=== PATIENT | male | born 1965 | race Caucasian/White ===

== ENCOUNTER 2016-08-30 13:43 | Day surgery (SDC) | payer BC ==
[2016-08-30] MEDS ORDERED: SODIUM CHLORIDE 0.9% 1,000 ML ONE (13:47)
[2016-08-30] MEDS ORDERED: IV START KIT ONE (13:47)
[2016-08-30] MEDS ORDERED: SODIUM CHLORIDE 0.9% 1,000 ML IV SCH (13:56)
[2016-08-30] MEDS ORDERED: LIDOCAINE 1% 2 ML VIAL ID PRN (13:56)
[2016-08-30] MEDS ORDERED: ONDANSETRON 4 MG/2ML 2 ML VIAL IV PRN (13:56)
[2016-08-30] MEDS ORDERED: PROPOFOL 60 ML IV ONE (15:09)
[2016-08-30 21:24] LABS: HELICOBACTER PYLORII DETECTION NEGATIVE (NEGATIVE)
--- NOTE | 2016-09-04 13:19 | SURGPATH ---
[facility] [address] [place] [id number] Patient Name: NONI SHANNON MR#: [id number] : 1965 Gender: M Specimen #: [id number] Collected: 08/30/2016 Received: 09/03/2016 Reported: 09/04/2016 Submitting Phys: MARY VALLADARES Copy To Phys: ISABELLA [facility] Clinical History / Pre-Operative Diagnosis: GERD; HISTORY OF COLON POLYPS Specimen Source / Surgical Procedure Performed: #1-ANTRAL BIOPSY; #2-GE JUNCTION BIOPSY AT 44 CM; #3-ESOPHAGEAL BIOPSY AT 43 CM; #4-ESOPHAGEAL BIOPSY AT 42 CM; #5-ESOPHAGEAL BIOPSY AT 41 CM; #6-TRANSVERSE COLON POLYP; #7-SIGMOID COLON POLYP AT 20 CM Interpretation: 1. STOMACH, ANTRUM, BIOPSY: - GASTRIC MUCOSA WITH NO DIAGNOSTIC ABNORMALITY 2. GE JUNCTION, BIOPSY: - ACTIVE INFLAMMATION WITH INTESTINAL METAPLASIA, NEGATIVE FOR DYSPLASIA 3. ESOPHAGUS, 43 CM, BIOPSY: - INTESTINAL METAPLASIA CONSISTENT WITH SEGURA'S ESOPHAGUS, NEGATIVE FOR DYSPLASIA 4. ESOPHAGUS, 42 CM, BIOPSY: - INTESTINAL METAPLASIA CONSISTENT WITH SEGURA'S ESOPHAGUS, NEGATIVE FOR DYSPLASIA 5. ESOPHAGUS, 41 CM, BIOPSY: - INTESTINAL METAPLASIA CONSISTENT WITH SEGURA'S ESOPHAGUS, NEGATIVE FOR DYSPLASIA 6. TRANSVERSE COLON, POLYP, BIOPSY: - TUBULAR ADENOMA 7. TRANSVERSE COLON, BIOPSY: - MINUTE FRAGMENT OF COLONIC MUCOSA WITHOUT DYSPLASIA Electronically Signed Out Dinah Huston M.D. Gross Description: #1 The specimen is received in a formalin filled container labeled with the patient's name and "antral biopsy". Exam biopsies are 0.3 and 0.4 cm. Totally embedded in cassette #1. #2 The specimen is received in a formalin filled container labeled with the patient's name and "GE junction biopsy". Four hansen biopsies are 0.4-0.5 cm. Totally embedded in cassette #2. #3 The specimen is received in a formalin filled container labeled with the patient's name and "esophageal biopsy at 43 cm". Four hansen biopsy are 0.4-0.6 cm. Totally embedded in cassette #3. #4 The specimen is received in a formalin filled container labeled with the patient's name and "esophageal biopsy at 42 cm". Five zarate-hansen biopsies are 0.2-0.5 cm. Totally embedded in cassette #4. #5 The specimen is received in a formalin filled container labeled with the patient's name and "esophageal biopsy at 41 cm". Five zarate-hansen biopsies are 0.2-0.5 cm. Totally embedded in cassette #5. #6 The specimen is received in a formalin filled container labeled with the patient's name and "transverse colon polyp". A single hansen biopsy is 0.4 cm. Totally embedded in cassette #6. #7 The specimen is received in a formalin filled container labeled with the patient's name and "sigmoid colon polyp at 20 cm ". Two pale walker apparent biopsies are each 0.1 cm. Totally embedded in cassette #7. [place]. Microscopic Description: 1. Sections show fragments of gastric mucosa. There is normal mucosal architecture and no significant inflammation. No Helicobacter organisms are identified and there is no intestinal metaplasia or dysplasia. 2. Sections show glandular epithelium with active inflammation. There are areas of intestinal metaplasia, but there is no dysplasia. 3. Sections show tissue from the squamocolumnar junction. There is intestinal metaplasia and active inflammation. No dysplasia is present. 4. Sections show tissue from the squamocolumnar junction. There is extensive intestinal metaplasia without dysplasia. 5. Sections show tissue from the squamocolumnar junction with intestinal metaplasia. There is no dysplasia. 6. Sections show fragments of adenomatous colonic mucosa without high grade dysplasia. 7. Sections show a minute fragment of colonic mucosa with no dysplastic features. 1: 2: 3: 4: 5: 6: 7: [id number], [id number] K22.70 D12.3
== END 2016-08-30 16:49 | disposition home or self-care (01) ==
LOC: SDC 13:43
PROVIDERS: ATTEND Surgery
PROC: 0DBL8ZX Excision of Transverse Colon, Via Natural or Artificial Opening Endoscopic, Diagnostic (ICD-10-PCS; principal; 2016-08-30)
PROC: 0DB58ZX Excision of Esophagus, Via Natural or Artificial Opening Endoscopic, Diagnostic (ICD-10-PCS; 2016-08-30)
PROC: 0DB68ZX Excision of Stomach, Via Natural or Artificial Opening Endoscopic, Diagnostic (ICD-10-PCS; 2016-08-30)
DX: Z12.11 Encounter for screening for malignant neoplasm of colon (principal); D12.3 Benign neoplasm of transverse colon; K22.70 Barrett's esophagus without dysplasia; K44.9 Diaphragmatic hernia without obstruction or gangrene; K29.70 Gastritis, unspecified, without bleeding; Z86.010 Personal history of colon polyps; Z72.0 Tobacco use
CPT/HCPCS: 45380; 87081; 43239; J7030